=== PATIENT | female | born 1955 | race Caucasian/White ===

== ENCOUNTER 2016-11-02 07:07 | Day surgery (SDC) | payer OTHER ==
[2016-11-02] VITALS (7 sets, daily range): BP systolic 92–112; BP diastolic 63–77; PULSE 50–87; TEMP 97.7–98.3
[~2016-11-02] VITALS: Ht 170.2 cm; Wt 87.2 kg
[~2016-11-02 07:07] MED LIST: AMBIEN CR 12.12.5 MG PO; AMBIEN CR6.25 MG PO; ARAVA10 MG PO; ASPIRIN 81M81 MG/TA2 PO; CALCIUM 500500 M2 PO; CELLCEPT 5500 MG/TAB PO; CITRACAL + D 251 TAB PO; DOXYCYCLINE 10100 MG PO; ENBREL50 MG/ML SQ; FOLIC ACID 11 MG/TA1 PO; GLUCOPHAGE500 MG/TAB PO; HUMARA SC; LIPITOR 40MG TA40 MG PO; LORTAB 7.5/5001 TAB PO; METHOTREXA50 MG/2 ML SQ; MULTIPLE VITAMI1 CAP PO; NEURONTIN300 MG/CAP PO; NEURONTIN600 MG/TAB PO; NORCO 325 MG-51 TAB PO; NORCO 325 MG-7.1 TAB PO; PLAQUENIL 200M200 MG PO; PREDNISONE20 MG PO; RYBIX ODT50 MG PO; SINGULAIR 110 MG/TAB PO; TUMS500 MG PO; ULTRAM 50MG TAB50 MG PO; XARELTO10 MG PO; ZITHROMAX 250M250 MG PO; ZYRTEC 10MG10 MG PO
[2016-11-02] MEDS ORDERED: PLAQUENIL 200M200 MG PO (07:36)
[2016-11-02] MEDS ORDERED: VITAMIN D1000 IU PO (07:37)
[2016-11-02] MEDS ORDERED: WELLBUTRIN XL150 MG PO (07:37)
== END 2016-11-02 10:35 | disposition home or self-care (01) ==
LOC: SDCO 07:07
DX: Z80.0 Family history of malignant neoplasm of digestive organs (principal); R10.32 Left lower quadrant pain; K92.1 Melena; I10 Essential (primary) hypertension; J45.909 Unspecified asthma, uncomplicated; I73.00 Raynaud's syndrome without gangrene; G89.29 Other chronic pain; J84.9 Interstitial pulmonary disease, unspecified; G47.30 Sleep apnea, unspecified; E11.8 Type 2 diabetes mellitus with unspecified complications; E78.5 Hyperlipidemia, unspecified; M06.9 Rheumatoid arthritis, unspecified; M47.896 Other spondylosis, lumbar region; M47.892 Other spondylosis, cervical region
CPT/HCPCS: OP; J2250; J2405; J3010; J7030

== ENCOUNTER → 2016-12-06 | Outpatient (CLI) | payer OTHER ==
[~2016-12-06] MED LIST changes: +VITAMIN D1000 IU PO; +WELLBUTRIN XL150 MG PO
== END ==
LOC: COL.RAD 13:06
DX: R90.82 White matter disease, unspecified (principal)
CPT/HCPCS: A9585

== ENCOUNTER → 2016-12-10 | Outpatient (CLI) | payer OTHER | LOC: MC.RAD 14:00 | DX: Z12.31 Encounter for screening mammogram for malignant neoplasm of breast (principal) ==

== ENCOUNTER 2017-02-17 10:53 | Inpatient (IN) | payer OTHER ==
[~2017-02-17] VITALS: Ht 170.2 cm; Wt 92.8 kg
[~2017-02-17 10:53] MED LIST changes: +MASON NATURAL2000 IU PO; -VITAMIN D1000 IU PO
[2017-04-05] VITALS (13 sets, daily range): BP systolic 102–139; BP diastolic 53–72; PULSE 44–92; TEMP 97.7–98.6
[2017-04-06 04:36] VITALS: BP 102/69; PULSE 54; TEMP 98.7
[2017-04-06 06:33] LABS: HEMATOCRIT 35.8 % (37.0-47.0)
[2017-04-06 07:32] VITALS: BP 109/59; PULSE 57; TEMP 97
[2017-04-06 12:27] VITALS: BP 113/59; PULSE 52; TEMP 97.9
[2017-04-06 15:47] VITALS: BP 107/59; PULSE 59; TEMP 98.7
[2017-04-06 22:17] VITALS: BP 109/56; PULSE 50; TEMP 98
[2017-04-07 04:00] VITALS: BP 101/64; PULSE 55; TEMP 98.5
[2017-04-07 08:01] VITALS: BP 109/64; PULSE 50; TEMP 98.2
[2017-04-07 11:10] VITALS: BP 121/65; PULSE 59; TEMP 98.4
== END 2017-04-07 15:00 | disposition home or self-care (01) | DRG 470 ==
LOC: JCC 04-05 07:03
PROVIDERS: Orthopaedic Surgery
PROC: 0SBC0ZX Excision of Right Knee Joint, Open Approach, Diagnostic (ICD-10-PCS; 2017-04-05)
PROC: 0SRC0J9 Replacement of Right Knee Joint with Synthetic Substitute, Cemented, Open Approach (ICD-10-PCS; principal; 2017-04-05 08:30)
DX: M17.11 Unilateral primary osteoarthritis, right knee (principal); M06.9 Rheumatoid arthritis, unspecified; E11.9 Type 2 diabetes mellitus without complications; I73.00 Raynaud's syndrome without gangrene
CPT/HCPCS: A4314; A9284; C1713; C1776; J0690; J1100; J2250; J2405; J2704; J3010; J3260; J7120

== ENCOUNTER 2017-04-01 16:00 | Outpatient (RCR) | payer OTHER ==
[~2017-04-01 16:00] MED LIST changes: +MASON NATURAL2000 IU PO; -VITAMIN D1000 IU PO
== END 2017-04-06 15:06 | disposition home or self-care (01) ==
LOC: MKS.ESL.PT 16:00
DX: M54.2 Cervicalgia (principal); Z79.84 Long term (current) use of oral hypoglycemic drugs; Z79.82 Long term (current) use of aspirin
CPT/HCPCS: G0283-GP

== ENCOUNTER → 2017-04-01 | Outpatient (CLI) | payer OTHER ==
[~2017-04-01] MED LIST changes: -MASON NATURAL2000 IU PO; +VITAMIN D1000 IU PO
[2017-04-01 09:30] LABS: HIV 1/2 Antibodies Non-Reactive; HIV-1p24 Antigen Non-Reactive
== END ==
LOC: COL.LAB 08:17
PROVIDERS: Orthopaedic Surgery
DX: Z01.812 Encounter for preprocedural laboratory examination (principal); M17.11 Unilateral primary osteoarthritis, right knee

== ENCOUNTER → 2017-04-22 | Outpatient (CLI) | payer OTHER | LOC: COL.VAS 12:28 | DX: M79.89 Other specified soft tissue disorders (principal); M79.604 Pain in right leg; Z96.651 Presence of right artificial knee joint ==

== ENCOUNTER 2017-07-08 11:00 | Outpatient (RCR) | payer OTHER | END 2017-07-10 | disposition home or self-care (01) | LOC: MKS.ESL.PT | DX: Z47.1 Aftercare following joint replacement surgery (principal); Z96.651 Presence of right artificial knee joint ==

== ENCOUNTER 2017-07-26 14:30 | Outpatient (RCR) | payer OTHER | END 2017-07-27 09:06 | disposition home or self-care (01) | LOC: MKS.ESL.PT 14:30 | DX: Z47.1 Aftercare following joint replacement surgery (principal); Z96.651 Presence of right artificial knee joint ==

== ENCOUNTER → 2017-08-10 | Outpatient (CLI) | payer OTHER | LOC: COL.RAD 14:09 | DX: M79.89 Other specified soft tissue disorders (principal); M25.561 Pain in right knee; Z96.651 Presence of right artificial knee joint ==

== ENCOUNTER → 2017-10-21 | Outpatient (CLI) | payer OTHER | LOC: COL.RAD 07:17 | DX: M72.2 Plantar fascial fibromatosis (principal); S93.492A Sprain of other ligament of left ankle, initial encounter; S86.312A Strain of muscle(s) and tendon(s) of peroneal muscle group at lower leg level, left leg, initial encounter ==

== ENCOUNTER 2018-06-29 16:30 | Outpatient (RCR) | payer OTHER | END 2018-07-02 | disposition home or self-care (01) | LOC: WSC | DX: M06.9 Rheumatoid arthritis, unspecified (principal); M19.90 Unspecified osteoarthritis, unspecified site ==

== ENCOUNTER 2018-07-06 11:18 | Outpatient (RCR) | payer OTHER | END 2018-10-04 | LOC: WSC | DX: M06.9 Rheumatoid arthritis, unspecified (principal); M19.90 Unspecified osteoarthritis, unspecified site ==

== ENCOUNTER → 2019-01-03 | Outpatient (CLI) | payer OTHER, BC | LOC: COL.RAD 07:22 | DX: M51.36 Other intervertebral disc degeneration, lumbar region (principal); M43.16 Spondylolisthesis, lumbar region; M12.88 Other specific arthropathies, not elsewhere classified, other specified site; M48.061 Spinal stenosis, lumbar region without neurogenic claudication ==

== ENCOUNTER → 2019-04-24 | Outpatient (CLI) | payer OTHER, BC | LOC: MC.RAD 07:05 | DX: Z12.31 Encounter for screening mammogram for malignant neoplasm of breast (principal) ==

== ENCOUNTER → 2019-05-17 | Outpatient (CLI) | payer OTHER, BC | LOC: MC.RAD 08:57 | DX: N63.20 Unspecified lump in the left breast, unspecified quadrant (principal) ==

== ENCOUNTER → 2019-11-02 | Outpatient (CLI) | payer OTHER, BC | LOC: MC.RAD 07:30 | DX: N63.22 Unspecified lump in the left breast, upper inner quadrant (principal); M06.9 Rheumatoid arthritis, unspecified; M06.39 Rheumatoid nodule, multiple sites ==

== ENCOUNTER → 2020-04-10 | Outpatient (CLI) | payer OTHER | LOC: COL.RAD 12:14 | DX: M84.374A Stress fracture, right foot, initial encounter for fracture (principal) ==

== ENCOUNTER → 2020-04-29 | Outpatient (CLI) | payer BC, OTHER | LOC: MC.RAD 15:45 | DX: Z12.31 Encounter for screening mammogram for malignant neoplasm of breast (principal) ==

== ENCOUNTER → 2021-07-14 | Outpatient (CLI) | payer BC | LOC: MC.RAD 16:51 | DX: Z12.31 Encounter for screening mammogram for malignant neoplasm of breast (principal) ==

== ENCOUNTER 2024-01-17 06:32 | Day surgery (SDC) | payer BC ==
[~2024-01-17] VITALS: Ht 167.6 cm; Wt 96.4 kg
[2024-01-17] VITALS (11 sets, daily range): BP systolic 109–129; BP diastolic 59–72; PULSE 72–89; TEMP 97.4–98.8
[~2024-01-17 06:32] MED LIST changes: -NEURONTIN600 MG/TAB PO; +OSCAL 500 TAB500 MG PO; -TUMS500 MG PO; +ceFAZolin 1 G in Water For Injection,Sterile 10 ML IV SCH
[2024-01-17] MEDS ORDERED: Lidocaine PF 2% (20 MG/ML) 5 ML VIAL ONE ×2 (07:05→07:11)
[2024-01-17] MEDS ORDERED: Midazolam 2 MG/2 ML VIAL ONE (07:05)
[2024-01-17] MEDS ORDERED: NS 30 ML IV ONE (07:05)
[2024-01-17] MEDS ORDERED: dexAMETHasone 10 MG/ML VIAL ONE ×2 (07:09→07:12)
[2024-01-17] MEDS ORDERED: Ondansetron 4 MG/2 ML VIAL ONE (07:12)
[2024-01-17] MEDS ORDERED: Ketorolac 30 MG/ML VIAL ONE (07:12)
[2024-01-17] MEDS ORDERED: Rocuronium 50 MG/5 ML Multi-Dose VIAL ONE (07:12)
[2024-01-17] MEDS ORDERED: NS 10 ML IV ONE (07:12)
[2024-01-17] MEDS ORDERED: MIEBO 100% EYE D3 ML OU (07:34)
[2024-01-17] MEDS ORDERED: FLEXERIL5 MG PO (07:35)
[2024-01-17] MEDS ORDERED: MOBIC15 MG PO (07:35)
[2024-01-17] MEDS ORDERED: XALATAN EYE DROPS OU (07:36)
[2024-01-17] MEDS ORDERED: PRILOSEC 20MG20 MG PO (07:36)
[2024-01-17] MEDS ORDERED: Ondansetron 4 MG/2 ML VIAL IV PRN ×2 (07:45→08:45)
[2024-01-17] MEDS ORDERED: hydrALAZINE 20 MG/ML 1 ML VIAL IV PRN (07:45)
[2024-01-17] MEDS ORDERED: HYDROmorphone 1 MG/1 ML SYRINGE [PACU/SDC ONLY] IV PRN (07:45)
[2024-01-17] MEDS ORDERED: fentaNYL 50 MCG/ML 1 ML SYRINGE/VIAL [PACU/SDC ONLY] IV PRN (07:45)
[2024-01-17] MEDS ORDERED: droPERidol 2.5 MG/ML 2 ML VIAL IV PRN (07:45)
[2024-01-17] MEDS ORDERED: ePHEDrine 50 MG/ML VIAL ONE (08:43)
[2024-01-17] MEDS ORDERED: oxyCODONE 5 MG TAB PO PRN ×2 (08:45)
[2024-01-17] MEDS ORDERED: Naloxone 0.4 MG/ML VIAL IV PRN (08:45)
[2024-01-17] MEDS ORDERED: Morphine 4 MG/ML VIAL IV PRN (08:45)
[2024-01-17] MEDS ORDERED: LR 1,000 ML IV SCH (08:45)
[2024-01-17] MEDS ORDERED: ZOLPIDEM 6.25 MG PO PRN (08:45)
[2024-01-17] MEDS ORDERED: SUBS TO ZOLPIDEM PO PRN (08:45)
[2024-01-17] MEDS ORDERED: Topical Skin Adhesive 1 EACH (1 ML) TOP ONE (08:57)
[2024-01-17] MEDS ORDERED: Phenylephrine 10 MG/ML VIAL ONE (08:57)
[2024-01-17] MEDS ORDERED: Meclizine 25 MG TAB PO SCH (09:00)
[2024-01-17] MEDS ORDERED: Famotidine 20 MG TAB PO SCH (09:00)
[2024-01-17] MEDS ORDERED: Gabapentin 100 MG CAP PO SCH (09:00)
[2024-01-17] MEDS ORDERED: Sennosides/Docusate 8.6-50 MG TAB PO SCH (09:00)
[2024-01-17] MEDS ORDERED: NS 1,000 ML IV SCH (09:00)
[2024-01-17] MEDS ORDERED: Hydroxychloroquine 200 MG TAB PO SCH (09:00)
[2024-01-17] MEDS ORDERED: Acetaminophen 500 MG TAB PO SCH ×2 (09:00→15:00)
--- NOTE | 2024-01-17 12:05 | NUR ---
Patient to room 327 from the PACU. Alert, but drowsy. Family at the bedside. VSS. IV CDI, fluids by gravity. Lap sitesx7 CDI. [place] intact. [place] over ABD for comfort. Post op VS monitored. Nurse oriented the patient to location, room and call light. Call light within reach
[2024-01-17] MEDS ORDERED: Zolpidem 5 MG TAB PO PRN (12:30)
[2024-01-17 12:42] LABS: CALCIUM 8.6 mg/dL (8.4-10.2); CREATININE, serum 0.85 mg/dL (0.57-1.11); POTASSIUM 4.2 mEq/L (3.5-4.5)
[2024-01-17] MEDS ORDERED: NEURONTIN300 MG/CAP PO (12:43)
[2024-01-17] MEDS ORDERED: ceFAZolin 1 G in Water For Injection,Sterile 10 ML IV SCH (14:00)
[2024-01-17] MEDS ORDERED: Gabapentin 300 MG CAP PO SCH ×3 (14:30→21:00)
--- NOTE | 2024-01-17 17:29 | NUR ---
plant nursery worker met with patient and her , Benjy, P# [phone] or his work P# is [phone], to discuss discharge planning. Patient lives in [place] with her . PCP is Dr. Dunn, Pharmacy is [facility]. No issues affording medications. [facility]surance is [employer]. DPOA-HC is Benjy. No DME, patient reports to be independent with ADLS. Patient reports she has transportation to get to and from appointments. Patient would like to return home at time of discharge. Discharge plan: Home
--- NOTE | 2024-01-17 19:26 | NUR ---
RECEIVED CHANGE OF SHIFT REPORT FROM DAY SHIFT NURSE.
[2024-01-17] MEDS ORDERED: Latanoprost 0.005% Ophth Soln 2.5 ML BOTTLE OP SCH (21:00)
[2024-01-17] MEDS ORDERED: Atorvastatin 40 MG TAB PO SCH (21:00)
[2024-01-18] VITALS (9 sets, daily range): BP systolic 103–130; BP diastolic 61–75; PULSE 75–86; TEMP 98–98.9
--- NOTE | 2024-01-18 01:14 | NUR ---
REPORTED GAS PAIN TO ABD, SEE MAR FOR MORPHINE IV GIVEN FOR LEVEL 7/10 PAIN. DENIES NAUSEA. DENIES ANY OTHER NEEDS AT THIS TIME. IV FLUIDS INFUSING WITH NO PROBLEMS. WARM BLANKET TO ABD APPLIED FOR COMFORT WELL.
[2024-01-18 06:21] LABS: BASO % 0.1 % (0.0-2.0); GRAN # 12.2 K/mm3 (1.4-6.5); GRAN % 85.8 % (42.2-75.2); HEMOGLOBIN 11.8 g/dl (12.5-16.0); LYMPH # 1.4 K/mm3 (1.2-3.4); LYMPH % 9.5 % (20.0-51.0); MEAN CELL VOLUME 87 fl (80.0-100.0); MEAN CORPUSCULAR HEMOGLOBIN 30 pg (27-31); MEAN CORPUSCULAR HGB CONC 35 g/dl (33.0-37.0); MEAN PLATELET VOLUME 9.3 fl (7.4-10.4); MONO # 0.6 K/mm3 (0.1-0.6); MONO % 3.9 % (1.7-9.3); PLATELET COUNT 171 K/mm3 (130-400); REDCELL DISTRIBUTION WIDTH-CV 11.9 % (11.5-14.5)
--- NOTE | 2024-01-18 06:32 | NUR ---
REQUESTED AND GIVEN PAIN MEDS FOR COMFORT MAINTENANCE. DENIES NAUSEA, IV FLUIDS INFUSING WITH NO PROBLEMS. RICH TO DD DRAINING CLEAR YELLOW.
[2024-01-18 06:56] LABS: HEMATOCRIT 33.9 % (37.0-47.0)
--- NOTE | 2024-01-18 07:16 | NUR ---
CHANGE OF SHIFT REPORT GIVEN TO DAY SHIFT NURSESONIA.
[2024-01-18] MEDS ORDERED: ROXICODONE 55 MG/TAB PO (08:53)
--- NOTE | 2024-01-18 10:20 | NUR ---
PT RESTING IN BED. DR HOLM IN TO ROUND AND GIVE NEW ORDERS. RICH CATHETER DISCONTINUED. PT TOLERATED WELL. PT AMBULATING IN [place] INDEPENDENTLY WITH FAMILY. EATING AND DRINKING NO N/V.
--- NOTE | 2024-01-18 17:51 | NUR ---
DISCHARGE INSTRUCTIONS REVIEWED WITH PT'S SON. VERBALIZED UNDERSTANDING LEFT FLOOR PER WHEEL CHAIR WITH STAFF
--- NOTE | 2024-01-18 18:01 | NUR ---
DISCHARGE INSTRUCTIONS REVIEWED WITH PT. QUESTIONS SOLICITED AND ANSWERED. PT LEFT UNIT PER WHEEL CHAIR.
== END 2024-01-18 18:02 | disposition home or self-care (01) ==
LOC: SDCO 06:32 → SURG 11:57 → SDCO 01-18 18:02
PROVIDERS: Urology
DX: D30.01 Benign neoplasm of right kidney (principal); E11.9 Type 2 diabetes mellitus without complications
CPT/HCPCS: OP; A4314; A9284; J0690; J0780; J1100; J1790; J1885; J2250; J2270; J2371; J2405; J2704; J2795; J3010; J7030; J7120